=== PATIENT | female | born 1960 | race African-American/Black ===

== ENCOUNTER 2018-11-30 13:37 | Emergency (ER) | payer MEDICARE ==
[2018-11-30] MEDS ORDERED: Ketorolac Tromethamine 30 MG/ML VIAL ONE (13:56)
== END 2018-11-30 14:10 | disposition home or self-care (01) ==
LOC: ERS 13:37
DX: G89.29 Other chronic pain (principal); M54.6 Pain in thoracic spine; E03.9 Hypothyroidism, unspecified; F41.9 Anxiety disorder, unspecified; F32.9 Major depressive disorder, single episode, unspecified; Z79.899 Other long term (current) drug therapy
CPT/HCPCS: 96372; J1885

== ENCOUNTER 2019-01-20 12:07 | Outpatient (CLI) | payer MEDICARE ==
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
== END 2019-01-20 12:08 | disposition home or self-care (01) ==
LOC: BICMRI 12:07
DX: M75.101 Unspecified rotator cuff tear or rupture of right shoulder, not specified as traumatic (principal)

== ENCOUNTER 2019-04-18 17:49 | Emergency (ER) | payer MEDICARE ==
[2019-04-18] MEDS ORDERED: Ketorolac Tromethamine 30 MG/ML VIAL ONE (19:38)
== END 2019-04-18 19:55 | disposition home or self-care (01) ==
LOC: ERS 17:49
DX: M54.5 Low back pain (principal); E03.9 Hypothyroidism, unspecified; F41.9 Anxiety disorder, unspecified; F32.9 Major depressive disorder, single episode, unspecified; Z79.899 Other long term (current) drug therapy
CPT/HCPCS: 96372; J1885

== ENCOUNTER 2019-07-02 09:42 | Emergency (ER) | payer MEDICARE ==
[2019-07-02 10:52] LABS: #Lymphocytes 2.4 thou/uL (1.20-3.40); #Monocytes 0.7 thou/uL (0.11-0.59); #Neutrophils 8.6 thou/uL (1.40-6.50); %Basophils 0.1 % (0.0-1.0); %Eosinophils 0.2 % (0.0-10.0); %Lymphocytes 20.5 % (21.0-51.0); %Neutrophils 73.2 % (42.0-75.0); Hemoglobin 13.1 g/dL (12.0-16.0); Mean Corpuscular HGB CONC 32.3 g/dL (32.0-36.0); Mean Corpuscular Volume 83.5 fL (78.0-98.0); Mean Platelet Volume 8.7 fL (7.4-10.4); Platelet Count 258 thou/uL (130-400); RBC Distribution Width 12.2 % (11.5-14.5); Red Blood Cell (RBC) Count 4.85 mill/uL (4.20-5.40); White Blood Cell (WBC) Count 11.8 thou/uL (4.8-10.8)
--- NOTE | 2019-07-02 11:01 | CT ---
CT Brain WO Con: 07/02/2019 10:28 AM CLINICAL HISTORY: Posttraumatic pain. COMPARISON: None. FINDINGS: Hemorrhage: None. Ventricular system: Normal in size and morphology for the patient's age. Cerebral parenchyma: Normal Midline shift: None. Mass: No mass effect. Calvarium: Normal. Inferior right frontal scalp laceration is present. Visualized Paranasal sinuses: Clear. IMPRESSION: No acute intracranial abnormalities.
[2019-07-02] MEDS ORDERED: Lidocaine 1% w/Epinephrine 1:100K 20 ML VIAL ONE (11:03)
[2019-07-02 11:05] LABS: ALT (SGPT) 12 U/L (8-55); AST (SGOT) 23 U/L (5-34); Albumin 4.2 g/dL (3.5-5.0); Alkaline Phosphatase 85 U/L (40-150); Anion Gap 15 mmol/L (10-20); BUN (Urea Nitrogen) 14 mg/dL (9.8-20.1); Bilirubin, Total 0.6 mg/dL (0.2-1.2); Calc. Creatinine Clearance 0 mL/min (70-130); Carbon Dioxide 22 mmol/L (22-29); Chloride 102 mmol/L (98-107); Estimated GFR-MDRD 69; Globulin 3.5 g/dL (2.4-3.5); Glucose 127 mg/dL (70-105); Potassium 3.4 mmol/L (3.5-5.1); Protein, Total 7.7 g/dL (6.0-8.3); Sodium 136 mmol/L (136-145)
[2019-07-02] MEDS ORDERED: Adacel (T-DAP) 0.5 ML SYRINGE ONE (11:06)
[2019-07-02] MEDS ORDERED: Acetaminophen 500 MG TAB ONE (11:06)
--- NOTE | 2019-07-02 11:06 | CT ---
CT CERVICAL SPINE NONCONTRAST: DATE: 07/02/2019 HISTORY: cervical trauma FINDINGS: There are no jumped or perched facets. There is no evidence of acute fracture. The vertebral body hei ghts are maintained. There is no prevertebral soft tissue swelling. IMPRESSION: No evidence of acute fracture or acute traumatic subluxation.
[2019-07-02] MEDS ORDERED: Triple Antibiotic Oint 1 GM Packet ONE (11:36)
== END 2019-07-02 12:10 | disposition home or self-care (01) ==
LOC: ERS 09:42
DX: S01.111A Laceration without foreign body of right eyelid and periocular area, initial encounter (principal); E03.9 Hypothyroidism, unspecified; F41.9 Anxiety disorder, unspecified; F32.9 Major depressive disorder, single episode, unspecified; Z79.899 Other long term (current) drug therapy; W01.0XXA Fall on same level from slipping, tripping and stumbling without subsequent striking against object, initial encounter
CPT/HCPCS: 12013; 70450; 72125; 80053; 84484; 85025; 90471; 90715; 93005; J2001

== ENCOUNTER 2019-07-11 14:27 | Emergency (ER) | payer MEDICARE | END 2019-07-11 15:10 | disposition home or self-care (01) | LOC: ERS 14:27 | DX: S01.01XD Laceration without foreign body of scalp, subsequent encounter (principal); F41.9 Anxiety disorder, unspecified; E03.9 Hypothyroidism, unspecified; F32.9 Major depressive disorder, single episode, unspecified; X58.XXXD Exposure to other specified factors, subsequent encounter ==

== ENCOUNTER 2019-08-04 14:30 | Emergency (ER) | payer MEDICARE ==
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
== END 2019-08-04 15:52 | disposition home or self-care (01) ==
LOC: ERS 14:30
DX: S93.602A Unspecified sprain of left foot, initial encounter (principal); E03.9 Hypothyroidism, unspecified; Z79.899 Other long term (current) drug therapy; W20.8XXA Other cause of strike by thrown, projected or falling object, initial encounter

== ENCOUNTER 2019-12-28 19:23 | Emergency (ER) | payer MEDICARE ==
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
[2019-12-28] MEDS ORDERED: Ketorolac Tromethamine 30 MG/ML VIAL ONE ×2 (23:33→23:46)
[2019-12-28] MEDS ORDERED: Acetaminophen 500 MG TAB ONE ×2 (23:33→23:46)
== END 2019-12-29 00:39 | disposition home or self-care (01) ==
LOC: ERS 19:23
DX: S20.212A Contusion of left front wall of thorax, initial encounter (principal); J06.9 Acute upper respiratory infection, unspecified; E03.9 Hypothyroidism, unspecified; Z79.899 Other long term (current) drug therapy; W01.0XXA Fall on same level from slipping, tripping and stumbling without subsequent striking against object, initial encounter
CPT/HCPCS: 71045; 96372; J1885

== ENCOUNTER 2020-03-21 21:32 | Observation (INO) | payer MEDICARE ==
[2020-03-21 22:16] LABS: #Lymphocytes 2.4 thou/uL (1.20-3.40); #Monocytes 0.7 thou/uL (0.11-0.59); #Neutrophils 10.3 thou/uL (1.40-6.50); %Basophils 0.3 % (0.0-1.0); %Eosinophils 0.2 % (0.0-10.0); %Lymphocytes 17.7 % (21.0-51.0); %Monocytes 5.1 % (0.0-10.0); %Neutrophils 76.8 % (42.0-75.0); Hemoglobin 13.7 g/dL (12.0-16.0); Mean Corpuscular HGB CONC 32.2 g/dL (32.0-36.0); Mean Corpuscular Hemoglobin 28.6 pg (27.0-31.0); Mean Corpuscular Volume 88.8 fL (78.0-98.0); Mean Platelet Volume 8.4 fL (7.4-10.4); Platelet Count 307 thou/uL (130-400); RBC Distribution Width 13.2 % (11.5-14.5); White Blood Cell (WBC) Count 13.4 thou/uL (4.8-10.8)
--- NOTE | 2020-03-21 22:17 | CT ---
CT head noncontrast HISTORY: Altered mental status. COMPARISON: 07/02/2019. FINDINGS: There is no evidence of acute intracranial hemorrhage or infarct. The ventricles appear nor mal in size, shape and position. There is no mass effect or shift of midline structures. Visualized paranasal sinuses remain well aerated. IMPRESSION : No abnormalities are demonstrated. Findings were called to Dr. Alvarez in the emergency department at 2211 hours. Code CR.
[2020-03-21 22:23] LABS: PTT 28.6 SEC (22.9-36.1); Prothrombin Time 13.2 sec (12.0-14.7)
[2020-03-21 22:36] LABS: ALT (SGPT) 13 U/L (8-55); AST (SGOT) 20 U/L (5-34); Albumin 5.2 g/dL (3.5-5.0); Alkaline Phosphatase 72 U/L (40-110); Anion Gap 17 mmol/L (10-20); BUN (Urea Nitrogen) 10 mg/dL (9.8-20.1); Bilirubin, Total 0.8 mg/dL (0.2-1.2); Calc. Creatinine Clearance 0 mL/min (70-130); Calcium 10.2 mg/dL (7.8-10.44); Carbon Dioxide 25 mmol/L (22-29); Chloride 106 mmol/L (98-107); Estimated GFR-MDRD 67; Globulin 3.3 g/dL (2.4-3.5); Glucose 111 mg/dL (70-105); Potassium 3.3 mmol/L (3.5-5.1); Protein, Total 8.5 g/dL (6.0-8.3); Sodium 145 mmol/L (136-145)
[2020-03-21 22:37] LABS: Acetaminophen Less than 6.0 mcg/mL (10.0-30.0); Alcohol Less than 10 mg/dL (Less than 10); CK (CPK) 406 U/L (29-168); Salicylate Less than 8.0 mg/dL (15.0-30.0)
[2020-03-21] MEDS ORDERED: Aspirin Chewable 81 MG TAB ONE ×2 (22:41)
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
[2020-03-21 23:44] LABS: Bilirubin Negative (Negative); Blood, Urine Negative (Negative); Clarity Clear (Clear); Glucose, Urine (Dipstick) Normal (Negative); Leukocyte Negative Leu/uL (Negative); Nitrite Negative (Negative); Protein, Urine (Dipstick) 20 mg/dL (Neg-Trace); Urobilinogen Normal mg/dL (Less than 2)
[2020-03-21 23:55] LABS: Medtox Reader # READER 4
[2020-03-21 23:56] LABS: Amphetamine Not Detected (NotDetected); Barbiturates Screen Not Detected (NotDetected); Benzodiazepine Screen Detected (NotDetected); Cocaine Metabolite Screen Not Detected (NotDetected); Medtox Control Line Valid? VALID (VALID); Methadone Not Detected (NotDetected); Methamphetamine Not Detected (NotDetected); Opiate Screen Detected (NotDetected); Oxycodone Screen Not Detected (NotDetected); Phencyclidine (PCP) Not Detected (NotDetected); THC/Cannabinoid Screen Not Detected (NotDetected); Tricyclic Screen Detected (NotDetected)
[2020-03-22] MEDS ORDERED: Ondansetron ODT 4 MG TAB PO PRN (00:54)
[2020-03-22] MEDS ORDERED: Acetaminophen 650 MG Suppository PR PRN (00:54)
[2020-03-22] MEDS ORDERED: Ondansetron PF 4 MG/2 ML Vial IVP PRN (00:54)
[2020-03-22] MEDS ORDERED: Acetaminophen 325 MG TAB PO PRN (00:54)
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
[2020-03-22 01:09] VITALS: BMI 26.7
[2020-03-22] MEDS ORDERED: Potassium Chloride 20 MEQ TAB PO SCH (01:15)
[2020-03-22] MEDS: HYDROcodone/Acetaminophen 5/325 mg Tablet PO PRN ×3 (02:33→22:48)
[2020-03-22] MEDS ORDERED: Lorazepam 1 MG TAB PO SCH (02:45)
[2020-03-22 02:47] LABS: Troponin I 0.013 ng/mL (< 0.028)
[2020-03-22 05:46] LABS: Hemoglobin 12.5 g/dL (12.0-16.0); Mean Corpuscular HGB CONC 31.3 g/dL (32.0-36.0); Mean Corpuscular Hemoglobin 28.1 pg (27.0-31.0); Mean Corpuscular Volume 89.8 fL (78.0-98.0); Mean Platelet Volume 8.6 fL (7.4-10.4); Platelet Count 265 thou/uL (130-400); RBC Distribution Width 13.2 % (11.5-14.5); Red Blood Cell (RBC) Count 4.45 mill/uL (4.20-5.40); White Blood Cell (WBC) Count 12.4 thou/uL (4.8-10.8)
[2020-03-22 05:47] LABS: Hemoglobin A1c 5.9 % (4.0-6.0)
[2020-03-22 06:02] LABS: Band 2 % (5-11); Lymphocytes 24 % (21-51); MDiff Complete? YES; Monocytes 4 % (0-10); Neutrophil 70 % (42-75)
[2020-03-22 06:07] LABS: ALT (SGPT) 10 U/L (8-55); AST (SGOT) 18 U/L (5-34); Albumin 4.4 g/dL (3.5-5.0); Alkaline Phosphatase 63 U/L (40-110); Anion Gap 13 mmol/L (10-20); BUN (Urea Nitrogen) 8 mg/dL (9.8-20.1); Bilirubin, Total 0.7 mg/dL (0.2-1.2); Calc. Creatinine Clearance 84 mL/min (70-130); Calcium 9.1 mg/dL (7.8-10.44); Carbon Dioxide 24 mmol/L (22-29); Cardiac Risk 5.4 (Less than 4.5); Chloride 109 mmol/L (98-107); Cholesterol 260 mg/dl (< 200 Desired); Estimated GFR-MDRD 87; Globulin 3.3 g/dL (2.4-3.5); Glucose 104 mg/dL (70-105); HDL Cholesterol 48 mg/dL (>60 Neg Risk); LDL Cholesterol, Calculated 185 mg/dL; Protein, Total 7.7 g/dL (6.0-8.3); Sodium 143 mmol/L (136-145); Triglycerides 136 mg/dL (Less than 150)
[2020-03-22 06:08] LABS: Troponin I Less than 0.010 ng/mL (< 0.028)
[2020-03-22] MEDS ORDERED: hydrALAZINE 20 MG/ML VIAL SLOW IVP PRN (08:07)
[2020-03-22] MEDS ORDERED: Senokot S 8.6-50 MG TAB PO PRN (08:07)
[2020-03-22] MEDS ORDERED: Sodium Chloride 0.65% Nasal 44 ML BOT EA NARE PRN (08:07)
[2020-03-22] MEDS ORDERED: Loratadine 10 MG TAB PO PRN (08:07)
[2020-03-22] MEDS ORDERED: Loperamide HCl 2 MG CAP PO PRN (08:07)
[2020-03-22] MEDS ORDERED: Calcium Carbonate 500 MG ChewTAB PO PRN (08:07)
[2020-03-22] MEDS ORDERED: Cepastat Lozenges 1 LOZ PO PRN (08:07)
[2020-03-22] MEDS ORDERED: Zolpidem Tartrate 5 MG TAB PO PRN (08:07)
[2020-03-22] MEDS ORDERED: Bisacodyl 10 MG SUPP PR PRN (08:07)
[2020-03-22] MEDS ORDERED: Diabetic Tussin 200 MG/10 ML UDCUP PO PRN (08:07)
--- NOTE | 2020-03-22 08:30 | ULT ---
Ultrasound Doppler duplex carotid: DATE: 03/22/2020 HISTORY: 59-year-old female with stroke TECHNIQUE: Grayscale, color-flow, and spectral analysis, of major arteries of neck. FINDINGS: Little or no plaque visualized. Vertebral artery flow antegrade bilaterally. Highest peak systolic velocities in the internal carotid arteries are 55 cm/s on the right and 50 cm/ s on the left. ICA/CCA ratios are 0.7 on the right and also 0.7 on the left. IMPRESSION: Negative. No significant plaque visualized. No evidence of high-grade stenosis.
[2020-03-22] MEDS: Enoxaparin Sodium 40 MG/0.4 ML SYRINGE SC SCH (09:21)
[2020-03-22] MEDS: Aspirin 81 mg Enteric Coated Tablet PO SCH (09:21)
[2020-03-22] MEDS: Lorazepam 1 MG TAB PO SCH ×3 (09:21→21:45)
--- NOTE | 2020-03-22 10:32 | PDOC.HOSPP ---
- Subjective Encounter Date: 03/22/20 Encounter Time: 08:45 Subjective: Patient seen and examined. No new complaints. No overnight events - Objective Vital Signs & Weight: Vital Signs (12 hours) Temp Pulse Resp BP Pulse Ox 03/22/20 04:10 98.6 F 86 19 156/99 H 99 03/22/20 00:55 99 F 72 18 160/100 H 96 Weight Weight 156 lb Result Diagrams: 03/22/20 05:02 03/22/20 05:02 Additional Labs: Accuchecks 03/21/20 22:08 POC Glucose 117 H Radiology Reviewed by me: Yes EKG Reviewed by me: Yes Hospitalist ROS - Review of Systems Eyes: denies: pain, vision change, conjunctivae inflammation, eyelid inflammation, redness, other ENT: denies: ear pain, ear discharge, nose pain, nose discharge, nose congestion , mouth pain, mouth swelling, throat pain, throat swelling, other Respiratory: denies: cough, dry, shortness of breath, hemoptysis, SOB with excertion, pleuritic pain, sputum, wheezing, other Cardiovascular: denies: chest pain, palpitations, orthopnea, paroxysmal noc. dyspnea, edema, light headedness, other Gastrointestinal: denies: nausea, vomiting, abdominal pain, diarrhea, constipation, melena, hematochezia, other Genitourinary: denies: dysuria, frequency, incontinence, hematuria, retention, other Musculoskeletal: denies: neck pain, shoulder pain, arm pain, back pain, hand pain, leg pain, foot pain, other Skin: denies: rash, lesions, doug, bruising, other - Medication Medications: Active Medications Generic Name Dose Route Start Last Admin Trade Name Freq PRN Reason Stop Dose Admin Hydrocodone Bitart/Acetaminophen 1 tab 03/22/20 00:54 03/22/20 02:33 [place] 5/325 PO 1 tab Q4H PRN Administration Moderate Pain (4-6) Aspirin 162 mg 03/22/20 09:00 03/22/20 09:21 Ecotrin PO 162 mg DAILY ALICIA Administration Enoxaparin Sodium 40 mg 03/22/20 09:00 03/22/20 09:21 Lovenox SC Not Given 0900 ALICIA Lorazepam 2 mg 03/22/20 09:00 03/22/20 09:21 Ativan PO 2 mg TID ALICIA Administration - Exam General Appearance: NAD, awake alert Eye: PERRL, anicteric sclera ENT: normocephalic atraumatic, no oropharyngeal lesions Neck: supple, symmetric, no JVD, no thyromegaly Heart: RRR, no murmur, no gallops, no rubs Respiratory: CTAB, no wheezes, no rales, no ronchi Gastrointestinal: soft, non-tender, non-distended, normal bowel sounds Extremities: no cyanosis, no clubbing, no edema Skin: normal turgor, no lesions, no rashes Neurological: no focal deficits Musculoskeletal: normal tone, normal strength Psychiatric: normal affect, normal behavior Hosp A/P (1) TIA (transient ischemic attack) Code(s): G45.9 - TRANSIENT CEREBRAL ISCHEMIC ATTACK, UNSPECIFIED Status: Acute (2) Dyslipidemia Code(s): E78.5 - HYPERLIPIDEMIA, UNSPECIFIED Status: Acute (3) Hypokalemia Code(s): E87.6 - HYPOKALEMIA Status: Acute (4) Chronic back pain Code(s): M54.9 - DORSALGIA, UNSPECIFIED; G89.29 - OTHER CHRONIC PAIN Status: Chronic Qualifiers: Back pain location: low back pain (5) Hypothyroidism Code(s): E03.9 - HYPOTHYROIDISM, UNSPECIFIED Status: Chronic (6) Anxiety and depression Code(s): F41.9 - ANXIETY DISORDER, UNSPECIFIED; F32.9 - MAJOR DEPRESSIVE DISORDER, SINGLE EPISODE, UNSPECIFIED Status: Acute - Plan old records reviewed/req, PT/OT potassium replaced continue aspirin, lipitor home medication reconciled echo and MRI carotid-normal will continue to monitor today if stable, will consider discharge tomorrow medication reviewed and continue symptomatic treatment
--- NOTE | 2020-03-22 11:44 | MRI ---
Exam: Brain MRI without contrast HISTORY: Stroke. Altered mental status. COMPARISON: None FINDINGS: Calvarial marrow signal intensity: Appropriate T1 signal Gradient echo sequence: No hemorrhage Brain parenchyma: No mass, mass effect or midline shift. Brain volume, age-appropriate. Cortical rivera-white matter differentiation: Preserved Restricted diffusion: Central arterial flow voids are maintained. Absent restricted diffusion White matter signal intensities:No significant T2 or FLAIR white matter hyperintensities Sinuses: Adequate aeration of the paranasal sinuses and mastoid air cells. IMPRESSION: 1. Absent restricted diffusion. No acute infarct. 2. No acute intracranial process.
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
--- NOTE | 2020-03-22 16:26 | EEG ---
Referring Physician: Adryan PEÑALOZA EEG # [id number] TEST TYPE: CONTINUOUS EXTENDED VIDEO EEG REPORT: This EEG was performed using 24 channel [id number] video digital EEG machine with 24 disc electrodes. This was an extended 2 hour 5 minutes of inpatient video EEG recording. Digital analysis of the EEG was done with spike and seizure detection which revealed no abnormalities. BACKGROUND: The posterior background rhythm is 9-10 hertz. The background rhythm attenuates with eye opening and enhances with eye closure. HYPERVENTILATION: No significant response seen with hyperventilation> PHOTIC STIMULATION: Bioccipital driving response is observed. SLEEP: Drowsiness is observed. EEG DIAGNOSIS: NORMAL AWAKE AND DROWSY EEG. Custodial Manager: [email or web address] Broadcast Checker: [email or web address]
[2020-03-22] MEDS ORDERED: Atorvastatin Calcium 40 MG TAB PO SCH (21:00)
[2020-03-23] MEDS: HYDROcodone/Acetaminophen 5/325 mg Tablet PO PRN (05:00)
[2020-03-23 05:21] LABS: #Basophils 0.1 thou/uL (0.0-0.2); #Eosinphils 0.1 thou/uL (0.0-0.7); #Lymphocytes 3.5 thou/uL (1.20-3.40); #Monocytes 0.6 thou/uL (0.11-0.59); #Neutrophils 4.5 thou/uL (1.40-6.50); %Basophils 1.1 % (0.0-1.0); %Lymphocytes 39.9 % (21.0-51.0); %Monocytes 6.3 % (0.0-10.0); %Neutrophils 51.7 % (42.0-75.0); Hemoglobin 12.1 g/dL (12.0-16.0); Mean Corpuscular HGB CONC 32.2 g/dL (32.0-36.0); Mean Corpuscular Hemoglobin 28.6 pg (27.0-31.0); Mean Corpuscular Volume 88.9 fL (78.0-98.0); Mean Platelet Volume 8.4 fL (7.4-10.4); Platelet Count 246 thou/uL (130-400); RBC Distribution Width 13.1 % (11.5-14.5); Red Blood Cell (RBC) Count 4.23 mill/uL (4.20-5.40); White Blood Cell (WBC) Count 8.7 thou/uL (4.8-10.8)
[2020-03-23 05:33] LABS: Anion Gap 12 mmol/L (10-20); BUN (Urea Nitrogen) 10 mg/dL (9.8-20.1); CK (CPK) 338 U/L (29-168); Calc. Creatinine Clearance 86 mL/min (70-130); Calcium 9.2 mg/dL (7.8-10.44); Carbon Dioxide 24 mmol/L (22-29); Chloride 109 mmol/L (98-107); Estimated GFR-MDRD 89; Glucose 91 mg/dL (70-105); Potassium 3.4 mmol/L (3.5-5.1); Sodium 142 mmol/L (136-145)
[2020-03-23] MEDS ORDERED: Levothyroxine Sodium 112 MCG TAB PO SCH (06:00)
[2020-03-23 08:00] VITALS: BP 137/88; TEMP 98.6
[2020-03-23] MEDS: Enoxaparin Sodium 40 MG/0.4 ML SYRINGE SC SCH (08:22)
[2020-03-23] MEDS: Aspirin 81 mg Enteric Coated Tablet PO SCH (08:22)
[2020-03-23] MEDS: Lorazepam 1 MG TAB PO SCH (08:22)
--- NOTE | 2020-03-23 09:45 | PDOC.HOSPP ---
- Subjective Encounter Date: 03/23/20 Encounter Time: 07:50 Subjective: Patient seen and examined. No new complaints. No overnight events - Objective Vital Signs & Weight: Vital Signs (12 hours) Temp Pulse Resp BP Pulse Ox 03/23/20 07:59 98.6 F 67 16 137/88 96 03/23/20 03:28 98.5 F 78 14 120/89 98 03/22/20 23:56 98.3 F 73 14 119/81 95 Weight Weight 156 lb Result Diagrams: 03/23/20 05:00 03/23/20 05:00 Radiology Reviewed by me: Yes EKG Reviewed by me: Yes Hospitalist ROS - Review of Systems ENT: denies: ear pain, ear discharge, nose pain, nose discharge, nose congestion , mouth pain, mouth swelling, throat pain, throat swelling, other Respiratory: denies: cough, dry, shortness of breath, hemoptysis, SOB with excertion, pleuritic pain, sputum, wheezing, other Cardiovascular: denies: chest pain, palpitations, orthopnea, paroxysmal noc. dyspnea, edema, light headedness, other Gastrointestinal: denies: nausea, vomiting, abdominal pain, diarrhea, constipation, melena, hematochezia, other Genitourinary: denies: dysuria, frequency, incontinence, hematuria, retention, other Musculoskeletal: denies: neck pain, shoulder pain, arm pain, back pain, hand pain, leg pain, foot pain, other Neurological: denies: weakness, numbness, incoordination, change in speech, confusion, seizures, other - Medication Medications: Active Medications Generic Name Dose Route Start Last Admin Trade Name Freq PRN Reason Stop Dose Admin Hydrocodone Bitart/Acetaminophen 1 tab 03/22/20 00:54 03/22/20 14:17 [place] 5/325 PO 1 tab Q4H PRN Administration Moderate Pain (4-6) Hydrocodone Bitart/Acetaminophen 2 tab 03/22/20 00:54 03/23/20 05:00 [place] 5/325 PO 2 tab Q4H PRN Administration Severe Pain (7-10) Aspirin 162 mg 03/22/20 09:00 03/23/20 08:22 Ecotrin PO 162 mg DAILY ALICIA Administration Atorvastatin Calcium 40 mg 03/22/20 21:00 03/22/20 21:45 Lipitor PO 40 mg HS ALICIA Administration Enoxaparin Sodium 40 mg 03/22/20 09:00 03/23/20 08:22 Lovenox SC Not Given 0900 ALICIA Lorazepam 2 mg 03/22/20 09:00 03/23/20 08:22 Ativan PO 2 mg TID ALICIA Administration Quetiapine Fumarate 300 mg 03/22/20 21:00 03/22/20 21:52 Seroquel PO 300 mg HS ALICIA Administration Sodium Chloride 0 ml 03/22/20 08:07 03/22/20 22:47 [place] Nasal [place] 0.65% EA NARE 1 spr QIDPRN PRN Administration Nasal Congestion - Exam General Appearance: NAD, awake alert Eye: PERRL, anicteric sclera ENT: normocephalic atraumatic, no oropharyngeal lesions Neck: supple, symmetric, no JVD, no thyromegaly Heart: RRR, no murmur, no gallops, no rubs Respiratory: CTAB, no wheezes, no rales, no ronchi Gastrointestinal: soft, non-tender, non-distended, normal bowel sounds Extremities: no cyanosis, no clubbing Skin: normal turgor, no lesions Neurological: no focal deficits Musculoskeletal: normal tone, normal strength Psychiatric: normal affect, normal behavior Hosp A/P (1) TIA (transient ischemic attack) Code(s): G45.9 - TRANSIENT CEREBRAL ISCHEMIC ATTACK, UNSPECIFIED Status: Acute (2) Dyslipidemia Code(s): E78.5 - HYPERLIPIDEMIA, UNSPECIFIED Status: Acute (3) Hypokalemia Code(s): E87.6 - HYPOKALEMIA Status: Acute (4) Chronic back pain Code(s): M54.9 - DORSALGIA, UNSPECIFIED; G89.29 - OTHER CHRONIC PAIN Status: Chronic Qualifiers: Back pain location: low back pain (5) Hypothyroidism Code(s): E03.9 - HYPOTHYROIDISM, UNSPECIFIED Status: Chronic (6) Anxiety and depression Code(s): F41.9 - ANXIETY DISORDER, UNSPECIFIED; F32.9 - MAJOR DEPRESSIVE DISORDER, SINGLE EPISODE, UNSPECIFIED Status: Acute - Plan old records reviewed/req potassium replaced continue aspirin, lipitor home medication reconciled echo and MRI carotid-normal will continue to monitor today if stable, will consider discharge tomorrow medication reviewed and continue symptomatic treatment 03/23/20 see discharge summery increase levothyroxine 150 mcg po daily
--- NOTE | 2020-03-23 11:48 | DIS ---
DATE OF ADMISSION: 03/22/2020 DATE OF DISCHARGE: 03/23/2020 PRIMARY CARE PHYSICIAN: Dr. Naav Head. DISCHARGE DISPOSITION: Home. PRIMARY DISCHARGE DIAGNOSES: 1. Transient ischemic attack. 2. Ruled out cerebrovascular accident. 3. Hypokalemia, corrected. SECONDARY DISCHARGE DIAGNOSES: 1. Anxiety and depression. 2. Dyslipidemia. 3. Obesity. 4. Chronic low back pain. 5. Hypothyroidism. PRIMARY PROCEDURE/OPERATION: None. RADIOLOGICAL INVESTIGATION: CT of brain in the emergency room is negative for an acute intracranial process. Chest x-ray is normal. MRI of brain is normal. Carotid Doppler, no stenosis. Echocardiography showed EF 55% to 60%. SIGNIFICANT LABORATORY DATA: WBC 8.7, hemoglobin 12.1, platelet 246. INR 1.0. Sodium 142, potassium 3.4, creatinine 0.80. LFT normal. LDL 185. TSH 9.05. Urinalysis normal. Urine tox screen, unremarkable. Blood culture, negative. DISCHARGE MEDICATIONS: The patient will continue her previous medication; 1. [place] 5 one tablet q.6 hours p.r.n. 2. Lorazepam 2 mg p.o. t.i.d. p.r.n. 3. Seroquel 300 mg p.o. at bedtime. 4. Aspirin 81 mg p.o. daily. 5. Lipitor 40 mg p.o. at bedtime. 6. Levothyroxine 150 mcg p.o. daily. CONTRAINDICATION: None. CODE STATUS: Full code. INPATIENT RUBBER TRIMMER: Neurology was following while in the hospital. TEST RESULT PENDING ON DISCHARGE: None. ALLERGIES: NO KNOWN DRUG ALLERGIES. DISCHARGE PLAN: Post hospital, the patient will follow up with primary care physician in 1 week. HOSPITAL COURSE: A 59-year-old female who has above-mentioned medical problem, who was admitted for slurred speech and headache. There was concern of TIA versus CVA. The patient's symptoms rapidly improved after admission. In the emergency room, CT of brain was negative. Chest x-ray was normal. Carotid Doppler subsequently we did, which came back normal. MRI of brain also negative for any stroke, and we have ruled out stroke. Clinical diagnosis is TIA. Echocardiography is unremarkable. Neurology was following. EEG was done, which was also negative for any acute process. The patient's thyroid function was not well controlled, so we increased dose to 150 mcg p.o. daily. The patient had hypokalemia, which was also corrected. The patient has elevated LDL, so we started Lipitor therapy. The patient's blood pressure remained well controlled without any medication and that is why she did not require any blood pressure medication at this point. The patient is instructed to keep a log of blood pressure and follow up with primary care physician to consider starting antihypertensive medication if needed. The patient is seen and examined at bedside today. The patient is medically stable and neurologically intact. Job ID: [id number]
--- NOTE | 2020-03-23 13:33 | PDOC.HOSPP ---
- Subjective Encounter Date: 03/23/20 Subjective: NEUROLOGY PROGRESS NOTE No acute events overnight. - Objective Vital Signs & Weight: Vital Signs (12 hours) Temp Pulse Resp BP Pulse Ox 03/23/20 07:59 98.6 F 67 16 137/88 96 03/23/20 03:28 98.5 F 78 14 120/89 98 Weight Weight 156 lb Result Diagrams: 03/23/20 05:00 03/23/20 05:00 Radiology Reviewed by me: Yes EKG Reviewed by me: Yes Hospitalist ROS - Review of Systems Constitutional: denies: fever, chills, sweats, weakness, malaise, other ENT: denies: ear pain, ear discharge, nose pain, nose discharge, nose congestion , mouth pain, mouth swelling, throat pain, throat swelling, other Respiratory: denies: cough, dry, shortness of breath, hemoptysis, SOB with excertion, pleuritic pain, sputum, wheezing, other Cardiovascular: denies: chest pain, palpitations, orthopnea, paroxysmal noc. dyspnea, edema, light headedness, other Gastrointestinal: denies: nausea, vomiting, abdominal pain, diarrhea, constipation, melena, hematochezia, other Genitourinary: denies: dysuria, frequency, incontinence, hematuria, retention, other Musculoskeletal: denies: neck pain, shoulder pain, arm pain, back pain, hand pain, leg pain, foot pain, other Skin: denies: rash, lesions, doug, bruising, other - Exam General Appearance: awake alert Eye: PERRL, anicteric sclera ENT: normocephalic atraumatic, no oropharyngeal lesions, moist mucosa Neck: supple, symmetric, no JVD Heart: RRR Respiratory: CTAB Gastrointestinal: soft Extremities: no cyanosis, no clubbing, no edema Skin: normal turgor, no lesions, no rashes Neurological: cranial nerve grossly intact, normal sensation to touch, no weakness, no focal deficits, no new deficit Musculoskeletal: normal tone, normal strength, no muscle wasting Psychiatric: normal affect, normal behavior, A&O x 3, oriented to person, oriented to place, oriented to time Hosp A/P (1) TIA (transient ischemic attack) Code(s): G45.9 - TRANSIENT CEREBRAL ISCHEMIC ATTACK, UNSPECIFIED Status: Acute (2) Anxiety and depression Code(s): F41.9 - ANXIETY DISORDER, UNSPECIFIED; F32.9 - MAJOR DEPRESSIVE DISORDER, SINGLE EPISODE, UNSPECIFIED Status: Acute (3) Hypothyroidism Code(s): E03.9 - HYPOTHYROIDISM, UNSPECIFIED Status: Chronic - Plan 59 year old consulted for episode of confusion with slurred speech. Imaging negative. TIA versus medication overdose. MRI brain reviewed which was negative for acute intracranial pathology. EEG reviewed which was unremarkable. Echocardiogram did not show any thrombus or PFO. Continue aspirin and statin for secondary stroke prevention. Strict control of BP and BG. Continue home medications. Continue medical management per primary team. No further recommendations from neurology stand point.
[2020-03-24] MEDS ORDERED: Levothyroxine 150 MCG TAB PO SCH (06:00)
--- NOTE | 2020-03-27 13:00 | EKG ---
Test Reason : Blood Pressure : / mmHG Vent. Rate : 066 BPM Atrial Rate : 066 BPM P-R Int : 172 ms QRS Dur : 088 ms QT Int : 456 ms P-R-T Axes : 013 252 -32 degrees QTc Int : 478 ms Normal sinus rhythm Right superior axis deviation Right ventricular hypertrophy with repolarization abnormality Nonspecific T wave abnormality Prolonged QT Abnormal ECG Confirmed by LOGAN CRONIN DO ([id number]), online editor HARRY VILLAVICENCIO ([id number]) on 03/27/2020 1:00:26 PM Referred By: Confirmed By:LOGAN CRONIN DO
== END 2020-03-23 11:58 | disposition home or self-care (01) ==
LOC: ERS 21:32 → 2SE 03-22 00:12
PROVIDERS: ADMIT Internal Medicine; ATTEND Internal Medicine
DX: G45.9 Transient cerebral ischemic attack, unspecified (principal); E87.6 Hypokalemia; F41.9 Anxiety disorder, unspecified; F32.9 Major depressive disorder, single episode, unspecified; E78.5 Hyperlipidemia, unspecified; E03.9 Hypothyroidism, unspecified; E66.9 Obesity, unspecified; G89.29 Other chronic pain; M54.5 Low back pain; Z68.26 Body mass index [BMI] 26.0-26.9, adult; Z79.899 Other long term (current) drug therapy
CPT/HCPCS: 70450; 70551; 71045; 80048; 80053 ×2; 80061; 80306; 80307; 81003; 82550 ×2; 82962; 83036; 83605; 84443; 84484 ×3; 85007; 85025 ×2; 85027; 85610; 85730; 87040; 93005; 93306; 93880; 94760; 95712; 95816; 95819; 95957; 96360; 96361; 97139 ×6; 99285; G0378 ×3; 36415; 36416

== ENCOUNTER 2020-05-10 20:52 | Emergency (ER) | payer MEDICARE ==
[2020-05-10] MEDS ORDERED: Ketorolac Tromethamine 30 MG/ML VIAL ONE (23:03)
== END 2020-05-11 00:04 | disposition home or self-care (01) ==
LOC: ERS 20:52
DX: M54.5 Low back pain (principal); E03.9 Hypothyroidism, unspecified; Z79.899 Other long term (current) drug therapy
CPT/HCPCS: 96372; 99283; J1885

== ENCOUNTER 2021-05-10 18:25 | Emergency (ER) | payer MEDICARE ==
[2021-05-10] MEDS ORDERED: Diazepam 5 MG TAB ONE (20:54)
== END 2021-05-10 20:33 | disposition home or self-care (01) ==
LOC: ERS 18:25
DX: M62.830 Muscle spasm of back (principal); G89.29 Other chronic pain
CPT/HCPCS: 99283

== ENCOUNTER 2021-08-29 19:17 | Emergency (ER) | payer MEDICARE ==
[2021-08-29] MEDS ORDERED: Ketorolac Tromethamine 30 MG/ML VIAL ONE (21:23)
== END 2021-08-29 22:00 | disposition home or self-care (01) ==
LOC: ERS 19:17
DX: M54.50 Low back pain, unspecified (principal); G89.29 Other chronic pain
CPT/HCPCS: 96372; 99283; J1885

== ENCOUNTER 2021-11-20 18:35 | Emergency (ER) | payer MEDICARE ==
[2021-11-20] MEDS ORDERED: Ketorolac Tromethamine 30 MG/ML VIAL ONE (21:15)
== END 2021-11-20 21:37 | disposition home or self-care (01) ==
LOC: ERS 18:35
DX: M62.830 Muscle spasm of back (principal); E03.9 Hypothyroidism, unspecified; Z79.899 Other long term (current) drug therapy
CPT/HCPCS: 96372; 99283; J1885

== ENCOUNTER 2021-12-18 19:18 | Emergency (ER) | payer MEDICARE ==
[2021-12-19 12:33] LABS: SARS-CoV-2 PCR by NAA Not Detected (NotDetected)
== END 2021-12-18 21:57 | disposition home or self-care (01) ==
LOC: ERS 19:18
DX: J11.1 Influenza due to unidentified influenza virus with other respiratory manifestations (principal); Z20.822 Contact with and (suspected) exposure to COVID-19; E03.9 Hypothyroidism, unspecified
CPT/HCPCS: 71045; 87804 ×2; 93005; 99285; U0003; U0005

== ENCOUNTER 2023-05-19 15:18 | Emergency (ER) | payer MEDICARE, OTHER ==
[2023-05-19] MEDS ORDERED: Ketorolac Tromethamine 30 MG/ML VIAL ONE (15:35)
[2023-05-19] MEDS ORDERED: HYDROcodone/Acetaminophen 10/325 mg Tablet ONE (15:35)
== END 2023-05-19 15:58 | disposition home or self-care (01) ==
LOC: ERS 15:18
DX: S39.012A Strain of muscle, fascia and tendon of lower back, initial encounter (principal); E03.9 Hypothyroidism, unspecified
CPT/HCPCS: 96372; 99283; J1885

== ENCOUNTER 2023-06-22 13:48 | Emergency (ER) | payer OTHER ==
[2023-06-22] MEDS ORDERED: Ketorolac Tromethamine 30 MG/ML VIAL ONE (14:45)
[2023-06-22] MEDS ORDERED: Orphenadrine Citrate 60 MG/2 ML VIAL ONE (14:45)
== END 2023-06-22 15:29 | disposition home or self-care (01) ==
LOC: ERS 13:48
DX: M54.50 Low back pain, unspecified (principal)
CPT/HCPCS: 96372; 99283; J1885; J2360

== ENCOUNTER 2023-09-22 19:18 | Emergency (ER) | payer OTHER ==
[2023-09-22] MEDS ORDERED: Ketorolac Tromethamine 30 MG/ML VIAL ONE (20:57)
[2023-09-22] MEDS ORDERED: Dexamethasone 10 MG/ML VIAL ONE (20:57)
== END 2023-09-22 21:26 | disposition home or self-care (01) ==
LOC: ERS 19:18
DX: M54.31 Sciatica, right side (principal)
CPT/HCPCS: 96372; 99283; J1100; J1885

== ENCOUNTER 2024-01-04 20:49 | Emergency (ER) | payer OTHER ==
[2024-01-04] MEDS ORDERED: Dexamethasone 10 MG/ML VIAL ONE (21:58)
== END 2024-01-04 22:19 | disposition home or self-care (01) ==
LOC: ERS 20:49
DX: M54.41 Lumbago with sciatica, right side (principal); E03.9 Hypothyroidism, unspecified
CPT/HCPCS: 96372; 99283; J1100

== ENCOUNTER 2024-03-21 18:14 | Emergency (ER) | payer MEDICARE ==
[2024-03-21] MEDS ORDERED: Ketorolac Tromethamine 30 MG (1 mL) VIAL ONE (19:24)
[2024-03-21] MEDS ORDERED: Cyclobenzaprine 10 MG TAB ONE (19:31)
[2024-03-21] MEDS ORDERED: Lidocaine 4% Patch TD SCH (19:45)
[2024-03-22] MEDS ORDERED: Transdermal Patch Removal TOP SCH (07:45)
== END 2024-03-21 20:11 | disposition home or self-care (01) ==
LOC: ERS 18:14
DX: M54.31 Sciatica, right side (principal)
CPT/HCPCS: 96372; 99283; J1885

== ENCOUNTER 2024-05-12 19:39 | Emergency (ER) | payer MEDICARE | END 2024-05-12 21:40 | disposition home or self-care (01) | LOC: ERS 19:39 | DX: M54.42 Lumbago with sciatica, left side (principal); E03.9 Hypothyroidism, unspecified; Z79.890 Hormone replacement therapy | CPT/HCPCS: 99283 ==

== ENCOUNTER 2024-06-11 16:33 | Emergency (ER) | payer MEDICARE ==
[2024-06-11] MEDS ORDERED: Ketorolac Tromethamine 30 MG (1 mL) VIAL ONE ×2 (19:02→19:08)
[2024-06-11] MEDS ORDERED: methylPREDNISolone Sod Succ/PF 125 MG/2 ML VIAL ONE (19:03)
== END 2024-06-11 20:05 | disposition home or self-care (01) ==
LOC: ERS 16:33
DX: M54.41 Lumbago with sciatica, right side (principal); E03.9 Hypothyroidism, unspecified; Z79.899 Other long term (current) drug therapy
CPT/HCPCS: 96372; J1885; J2930

== ENCOUNTER 2024-07-19 16:28 | Emergency (ER) | payer MEDICARE ==
[2024-07-19] MEDS ORDERED: predniSONE 20 MG TAB ONE (17:11)
[2024-07-19] MEDS ORDERED: Orphenadrine Citrate 60 MG/2 ML VIAL ONE (17:11)
[2024-07-19] MEDS ORDERED: Ketorolac Tromethamine 30 MG (1 mL) VIAL ONE (17:11)
== END 2024-07-19 18:25 | disposition home or self-care (01) ==
LOC: ERS 16:28
DX: M54.41 Lumbago with sciatica, right side (principal); E03.9 Hypothyroidism, unspecified; Z79.899 Other long term (current) drug therapy
CPT/HCPCS: 96372; 99283; J1885; J2360; J7512

== ENCOUNTER 2024-09-18 19:59 | Emergency (ER) | payer MEDICARE ==
[2024-09-18] MEDS ORDERED: Ketorolac Tromethamine 30 MG (1 mL) VIAL ONE (20:11)
[2024-09-18] MEDS ORDERED: Dexamethasone 10 MG/ML VIAL ONE (20:11)
[2024-09-18] MEDS ORDERED: Cyclobenzaprine 10 MG TAB ONE (20:11)
== END 2024-09-18 21:59 | disposition home or self-care (01) ==
LOC: ERS 19:59
DX: M54.31 Sciatica, right side (principal); E03.9 Hypothyroidism, unspecified
CPT/HCPCS: J1100; J1885; 96372; 99282

== ENCOUNTER 2024-10-09 23:03 | Emergency (ER) | payer MEDICARE ==
[2024-10-10] MEDS ORDERED: Cyclobenzaprine 10 MG TAB ONE (00:17)
[2024-10-10] MEDS ORDERED: Ketorolac Tromethamine 30 MG (1 mL) VIAL ONE ×2 (00:17→00:18)
[2024-10-10] MEDS ORDERED: Acetaminophen 500 MG TAB ONE (00:17)
== END 2024-10-10 01:49 | disposition home or self-care (01) ==
LOC: ERS 23:03
DX: M54.50 Low back pain, unspecified (principal); R20.2 Paresthesia of skin; E03.9 Hypothyroidism, unspecified; Z79.899 Other long term (current) drug therapy
CPT/HCPCS: 96372; 99283; J1885

== ENCOUNTER 2024-12-20 18:52 | Emergency (ER) | payer MEDICARE, OTHER ==
[2024-12-20] MEDS ORDERED: Ketorolac Tromethamine 30 MG (1 mL) VIAL ONE (20:48)
[2024-12-20] MEDS ORDERED: Morphine 4 MG/ML VIAL ONE (20:48)
[2024-12-20] MEDS ORDERED: Dexamethasone 10 MG/ML VIAL ONE (20:48)
[2024-12-20] MEDS ORDERED: Lorazepam 2 MG/ML VIAL ONE (20:49)
== END 2024-12-20 21:47 | disposition home or self-care (01) ==
LOC: ERS 18:52
DX: M54.41 Lumbago with sciatica, right side (principal); E03.9 Hypothyroidism, unspecified; Z79.899 Other long term (current) drug therapy
CPT/HCPCS: J1100; J1885; J2060; J2270; 96374; 96375

== ENCOUNTER 2025-07-26 20:20 | Emergency (ER) | payer OTHER ==
[2025-07-26] MEDS ORDERED: predniSONE 20 MG TAB ONE (22:26)
[2025-07-26] MEDS ORDERED: Cyclobenzaprine 10 MG TAB ONE (22:26)
[2025-07-26] MEDS ORDERED: Ketorolac Tromethamine 30 MG (1 mL) VIAL ONE (22:26)
[2025-07-26] MEDS ORDERED: Acetaminophen/Codeine 30-300mg Tablet ONE (22:27)
== END 2025-07-26 22:52 | disposition home or self-care (01) ==
LOC: ERS 20:20
DX: S39.012A Strain of muscle, fascia and tendon of lower back, initial encounter (principal); E03.9 Hypothyroidism, unspecified; Z79.890 Hormone replacement therapy; X58.XXXA Exposure to other specified factors, initial encounter
CPT/HCPCS: 96372; 99283; J1885; J7512

== ENCOUNTER 2025-09-11 15:54 | Emergency (ER) | payer OTHER ==
[2025-09-11] MEDS ORDERED: Ketorolac Tromethamine 30 MG (1 mL) VIAL ONE (17:29)
[2025-09-11] MEDS ORDERED: Acetaminophen 500 MG TAB ONE (17:29)
== END 2025-09-11 20:00 | disposition home or self-care (01) ==
LOC: ERS 15:54
DX: S93.402A Sprain of unspecified ligament of left ankle, initial encounter (principal); S93.602A Unspecified sprain of left foot, initial encounter; E03.9 Hypothyroidism, unspecified; Z79.899 Other long term (current) drug therapy; Z55.6 Problems related to health literacy; Z79.890 Hormone replacement therapy; W01.0XXA Fall on same level from slipping, tripping and stumbling without subsequent striking against object, initial encounter
CPT/HCPCS: 96372; 99283; J1885